=== PATIENT | female | born 1985 | race Caucasian/White ===

== ENCOUNTER → 2016-05-29 | Outpatient (REF) | payer OTHER ==
[~2016-05-29] MED LIST: ACET50TA PO; ATIV1TAB2 OR; DEPA500T2 OR; IBUP80TA PO; TRAZ50TA OR; VITAPRTA PO
== END ==
LOC: M LAB REF 16:48
PROVIDERS: ATTEND Advanced Practice Midwife
DX: Z12.4 Encounter for screening for malignant neoplasm of cervix (principal)

== ENCOUNTER → 2016-09-24 | Outpatient (CLI) | payer OTHER ==
[2016-09-24 15:41] LABS: BASO % 0.4 % (0.0-1.0); EOS % 0.8 % (0.0-3.0); LARGE UNSTAINED CELL # 0.1 K/mm3 (0.0-0.4); LYMPH # 1.9 K/mm3 (1.5-4.5); LYMPH % 27.6 % (24.0-44.0); MEAN CORPUSCULAR HEMOGLOBIN 31.4 pg (27.0-33.0); MEAN CORPUSCULAR HGB CONC 33.6 g/dl (32.0-36.5); MEAN CORPUSCULAR VOLUME 93.4 fl (80.0-96.0); MONO # 0.3 K/mm3 (0.0-0.8); MONO % 4.7 % (0.0-5.0); NEUTROPHILS # 4.1 K/mm3 (1.8-7.7); NEUTROPHILS % 64.5 % (36.0-66.0); PLATELET COUNT, AUTOMATED 328 k/mm3 (150-450); RED CELL DISTRIBUTION WIDTH 13.3 % (11.5-14.5); WHITE BLOOD COUNT 6.4 K/mm3 (4.0-10.0)
[2016-09-25 09:51] LABS: HBsAg Prenatal NEGATIVE (NEGATIVE)
== END ==
LOC: M LAB 14:53
PROVIDERS: ATTEND Advanced Practice Midwife
DX: Z34.81 Encounter for supervision of other normal pregnancy, first trimester (principal)

== ENCOUNTER → 2016-12-18 | Outpatient (CLI) | payer OTHER ==
--- NOTE | 2016-12-18 16:48 | REP ---
HISTORY: anatomy. There are no pertinent priors. Multiple ultrasonographic images of the gravid uterus show a single living intrauterine gestation in variable positions. Doppler interrogation of the heart shows a heart rate of 144 beats per minute. The placenta is anterior and not low lying. The subjective amniotic fluid volume is within normal limits. The cervix measures 3.9 cm in length and is closed. Evaluation of the maternal adnexal spaces showed no abnormalities. The anatomical structures visualized as unremarkable are as follows: Thalami, cavum septum pellucidum, cerebellum, cisterna magna, cerebral ventricles, spine, kidneys, urinary bladder, stomach, cord insertion, three vessel umbilical cord, four-chamber heart, right and left ventricular outflow tracts, facial features, and upper and lower extremities. The spine was seen suboptimally due to lie. BPD 4.4 cm = 19 weeks 3 days HC 17.1 cm = 19 weeks 5 days AC 14.5 cm = 19 weeks 6 days FL 3.2 cm = 19 weeks 6 days The estimated weight is 313 grams which is at the 40th percentile for a 20 week 0 day gestational age. IMPRESSION: Single living intrauterine gestation as described above with an estimated gestational age of 19 weeks 3 days via composite criteria and an estimated date of delivery of 05/11/2017 by today's exam. No anomalies were detected, however, I recommend a followup examination to better visualize the spine. Signed by Idris Kelley DO 12/21/2016 03:24 P
== END ==
LOC: M SMT 15:02
PROVIDERS: ATTEND Advanced Practice Midwife
DX: Z34.82 Encounter for supervision of other normal pregnancy, second trimester (principal)

== ENCOUNTER → 2017-01-08 | Outpatient (CLI) | payer OTHER ==
--- NOTE | 2017-01-08 16:47 | REP ---
Obstetric sonography: History: Supervision of for anatomy. Findings: Scanning through the gravid uterus demonstrates a viable single intrauterine gestation in a cephalic lie. motion is observed and heart rate is recorded at 150 beats per minute. A posterior grade 1 placenta is seen without evidence of previa or abruption. Amniotic fluid is subjectively normal. Closed cervical length is 5.0 cm measured transabdominally. No extrauterine abnormality is observed. There has been appropriate interval growth. No anomaly is seen. The following anatomic structures are identified and felt to be sonographically unremarkable: cranium, choroid plexus, cavum, cerebellum and posterior fossa, face and profile, lungs, four-chamber heart with left and right ventricular outflow tract views, diaphragm, left-sided stomach, abdominal wall cord insertion, three-vessel cord, kidneys and bladder, spine, upper and lower extremities. Biometry chart: BPD 5.5 cm = 22 weeks 5 days HC 21.0 cm = 23 weeks 1 day AC 18.2 cm = 23 weeks 0 days FL 4.4 cm = 24 weeks 2 days HL 3.9 cm = 23 weeks 4 days HC/AC ratio normal 1.16. Cephalic index normal 0.71. Estimated weight 601 grams, 1 pound 5 ounces, 51st percentile for 23 weeks 2 days. Impression: Viable single intrauterine gestation at 23 weeks 2 days by today's composite criteria. Expected gestational age estimate based on prior sonography is 22 weeks 3 days, JAIRO by prior sonography May 11, 2017. anatomic survey is felt to be complete. Signed by Cecil Marrufo MD 01/12/2017 08:05 A
== END ==
LOC: M RAD 09:29
PROVIDERS: ATTEND Specialist
DX: Z34.82 Encounter for supervision of other normal pregnancy, second trimester (principal)

== ENCOUNTER → 2017-02-15 | Outpatient (CLI) | payer OTHER ==
[2017-02-15 19:36] LABS: BASO % 0.2 % (0.0-1.0); EOS # 0.1 10^3/uL (0.0-0.50); EOS % 0.5 % (0.0-3.0); IMMATURE GRANULOCYTE % 0.5 % (0-0); LYMPH # 1.3 10^3/uL (1.5-4.5); LYMPH % 13.5 % (24.0-44.0); MEAN CORPUSCULAR HEMOGLOBIN 31.1 pg (27.0-33.0); MEAN CORPUSCULAR HGB CONC 33.2 g/dl (32.0-36.5); MEAN CORPUSCULAR VOLUME 93.8 fl (80.0-96.0); MONO # 0.7 10^3/uL (0.0-0.8); MONO % 7.4 % (0.0-5.0); NEUTROPHILS # 7.6 10^3/uL (1.8-7.7); NEUTROPHILS % 77.9 % (36.0-66.0); PLATELET COUNT, AUTOMATED 290 10^3/uL (150-450); RED CELL DISTRIBUTION WIDTH 13.6 % (11.5-14.5); WHITE BLOOD COUNT 9.8 10^3/uL (4.0-10.0)
== END ==
LOC: M SMT 13:54
PROVIDERS: ATTEND Advanced Practice Midwife
DX: Z34.83 Encounter for supervision of other normal pregnancy, third trimester (principal)

== ENCOUNTER → 2017-04-08 | Outpatient (REF) | payer OTHER, MEDICAID | LOC: M LAB REF 17:03 | PROVIDERS: ATTEND Advanced Practice Midwife | DX: Z34.83 Encounter for supervision of other normal pregnancy, third trimester (principal) ==

== ENCOUNTER 2017-04-22 14:05 | Inpatient (IN) | payer OTHER, MEDICAID ==
[~2017-04-22] VITALS: Ht 167.6 cm; Wt 77.7 kg
[2017-04-22] VITALS (13 sets, daily range): BP systolic 107–148; BP diastolic 58–85
[2017-04-22] MEDS ORDERED: LACTATED RINGER'S 1000 ML IV STA (14:29)
[2017-04-22] MEDS ORDERED: miSOPROStol 50 MCG 1/2 TAB (S0191) SL ONE (14:45)
[2017-04-22 15:25] LABS: MEAN CORPUSCULAR HGB CONC 34.2 g/dl (32.0-36.5); MEAN CORPUSCULAR VOLUME 90.6 fl (80.0-96.0); PLATELET COUNT, AUTOMATED 310 10^3/uL (150-450); WHITE BLOOD COUNT 10.5 10^3/uL (4.0-10.0)
--- NOTE | 2017-04-22 16:11 | HPEPDOC ---
Obstetrical History & Physical General Date of Admission Apr 22, 2017 at 14:05 History of Present Illness Chief Complaint: Induction of labor, Rupture of membranes (at 37w6d) Information Provided By: Patient, Family Age: 32 : 3 Term: 1 Pre-term: 0 Abortions: 1 Livin Care Care: Good Care Number of Visits: 13 Dating Final EDC: May 07, 2017 Final EDC by: LMP LMP: Jul 31, 2016 EGA at Admission: 37 (37 weeks 6 days) Antepartum Course Diagnos(e)s Spontaneous rupture of membranes at term Pre- weight (lbs.): 145 Change in Weight (lbs.): 28 Past Medical History Past Obstetrical History : Past Obstetrical History: Multigravida Date of Delivery: Apr 22, 2017 (November 2014) Gestation: 37 Type of Delivery: Spontaneous Vaginal Del. Sex of : Female Weight of (grams): 7 (7 lbs. 9 oz.) Complications: No MANAGER PLANNING History: Other (March 2016. She experienced an early first trimester miscarriage) Past Medical History Medical History PANKAJIK Family History Significant Family History: Cancer (breast), Other (thyroid disease) Social History Marital Status: Single Family situation: Spouse/partner home Psychosocial History: No pertinent psych hx * Smoker: non-smoker Alcohol: rarely Drugs: denies Abuse Violence Screening Have you been hit/kicked/slapp: No Have you been sexually assault: No Imunizations Tdap status: declined Influenza Status: declined Allergies Coded Allergies: Sulfa Antibiotics (Verified Allergy, Unknown, 04/22/17) Sulfa Drugs (Verified Allergy, Unknown, 08/09/12) Sulfa Drugs Cross Reactors (Verified Allergy, Unknown, 08/09/12) Medications Scheduled Multivit/Min/Pren/Fol Ac/Iron ( Rx) 1 Tab Tab, 1 TAB PO DAILY for NUTRITIONAL SUPPORT Physical Examination Physical Examination GENERAL: Alert and oriented times three. BREAST: . ABDOMEN: Gravid and non-tender to touch. FETUS: Is vertex (VTX) by sterile vaginal examination (SVE), fetus is vertex ( VTX) by Sudeep. HEART RATE: Regular rate and rhythm. LUNGS: Clear to auscultation (CTA). EXTREMITIES: No edema. No clonus. Deep tendon reflexes (DTRs) + . Other physical findings Sterile speculum exam, the office, positive pooling of clear fluid, positive nitrazine, positive fern. Sterile vaginal exam 1-2 cm, 50% effaced, -3 station Laboratory Data 24H LABS Laboratory Tests 2 04/22/17 14:38: Serology Scanned Report Hepatitis B Testing 04/22/17 15:14: Nucleated Red Blood Cells % (auto) 0.0, Urine Amphetamines Screen NEGATIVE, Urine Benzodiazepines Screen NEGATIVE, Urine Opiates Screen NEGATIVE, Urine Methadone Screen NEGATIVE, Urine Barbiturates Screen NEGATIVE, Urine Phencyclidine Screen NEGATIVE, Urine Cocaine Metabolite Screen NEGATIVE, Urine Cannabinoids Screen NEGATIVE CBC/BMP Laboratory Tests 04/22/17 15:14 Red Blood Count 4.36, Mean Corpuscular Volume 90.6, Mean Corpuscular Hemoglobin 31.0, Mean Corpuscular Hemoglobin Concent 34.2, Red Cell Distribution Width 13.0 Pertinent Laboratoy Data Blood Type: O+ RBC Antibody Screen: Negative HIV: Negative Hepatitis B: Negative Hepatitis C: Negative Rapid Plasma Reagin: Nonreactive Rubella: Immune Varicella: Unknown Chlamydia/Gonorrhea: Negative Group B Streptococcus: Negative Quad Screen Test: Declined Cystic Fibrosis: Declined Glucose Tolerance Test: 81 Anatomy Ultrasound Ultrasound Date: Dec 18, 2016 Placenta Location: Anterior Normal Anatomy: Yes Placenta Previa: No Steroid Therapy Steroid Therapy: No Vaginal Examination Dilation: other (1-2 cm) Effacement: Other (50) Station: -3 Cervical Position: Middle Presentation: Cephalic presentation Position: Vertex (occiput) Assessment Heart Rate (FHR): 145 Variability: Moderate Accelerations: Positive Decelerations: None Tocometer Contractions: Yes Frequency: irregular Duration: greater than 60 seconds Strength: palpated as moderate Assessment/Plan Assessment Pam is a 32-year-old (G) 3 para (P) 1 -0 -1-1 at 37 + 6 weeks by 8- week ultrasound. Presents to Labor and Delivery (L&D) with complaints of loss of fluid, commencing at 845 this morning. Fluid has been clear. Patient reports mild irregular cramping and good movement. Plan Admit and orient. 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 Diet: Regular. Group B Streptococcus (GBS) negative. Labs and intravenous (IV) per unit protocol. Misoprostol sublingually 1 dose Counseled on Pitocin and induction of labor (IOL). Lactated Ringers (LR): Bolus 500 mL, then saline lock. Anticipate normal spontaneous vaginal delivery. C-S as appropriate. Labor and Delivery Counseling Pam is considering an epidural for coping with her labor Evelyn Chamberlain CNM Apr 22, 2017 16:10
[2017-04-22] MEDS ORDERED: LR 1,000 ML IV SCH (19:02)
--- NOTE | 2017-04-22 19:04 | IPNPDOC ---
Obstetrical Progress Note Date of Service Apr 22, 2017 Objective Vital Signs Vital Signs Date Time Temp Pulse Resp B/P (MAP) Pulse Ox O2 Delivery O2 Flow Rate FiO2 04/22/17 17:28 97.9 75 20 138/82 (100) Assessment Heart Rate (FHR): 150 Variability: Moderate Accelerations: Positive Decelerations: None Heart Rate Tracing: Category I Tocometer Contractions: Yes Frequency: every 2-5 min. Strength: palpated as moderate Sterile Vaginal Examination Dilation: other (2-3) Effacement (%): 80+% Station: -1 Cervical Consistency: Soft Cervical Position: Middle (fluid remains clear) Postion/Presentation: Cephalic presentation Assessment and Plan Status: Reassuring Group B Streptococcus: Negative Anticipate: Vaginal Delivery Evelyn Chamberlain CNM Apr 22, 2017 19:04
[2017-04-22] MEDS ORDERED: OXYTOCIN DRIP 30 UNITS in APPROPRIATE DILUENT 1 EA IV SCH (19:15)
--- NOTE | 2017-04-22 22:06 | IPNPDOC ---
Text Note Date of Service The patient was seen on 04/22/17. NOTE Requesting IV pain management UC 2-3 minutes apart x 60 seconds, moderate FH 150, moderate variability, early decels SVE 3-4/90/-1, fluid remains clear, increased bloody show. Stadol/phenergan ordered. VS,Fishbone, I+O VS, Fishbone, I+O Laboratory Tests 04/22/17 15:14 Red Blood Count 4.36, Mean Corpuscular Volume 90.6, Mean Corpuscular Hemoglobin 31.0, Mean Corpuscular Hemoglobin Concent 34.2, Red Cell Distribution Width 13.0 Vital Signs Date Time Temp Pulse Resp B/P (MAP) Pulse Ox O2 Delivery O2 Flow Rate FiO2 04/22/17 19:56 98.8 82 20 132/81 (98) Evelyn Chamberlain CNM Apr 22, 2017 22:06
[2017-04-22] MEDS ORDERED: PROMETHAZINE INJ 25 MG/ML VIAL (J2550) IV ONE (22:15)
[2017-04-22] MEDS ORDERED: BUTORPHANOL 2 MG/ML INJ (J0595) IV ONE (22:15)
[2017-04-23] MEDS ORDERED: MEASLES,MUMPS,RUBELLA VACCINE INJ (MMR-II) (90707) SC SCH
[2017-04-23] MEDS ORDERED: DIBUCAINE 1% OINTMENT 30GM TOP PRN
[2017-04-23] MEDS ORDERED: DOCUSATE SODIUM 100 MG CAP PO PRN
[2017-04-23] MEDS ORDERED: MOM 30ML SUSPENSION UDC PO PRN
[2017-04-23] MEDS ORDERED: METHYLERGONOVINE MALEATE 0.2 MG TAB PO PRN
[2017-04-23] MEDS ORDERED: ACETAMINOPHEN 500 MG TAB PO PRN
[2017-04-23] MEDS ORDERED: ANUSOL HC CREAM 30GM TOP PRN
[2017-04-23] MEDS ORDERED: IBUPROFEN 800 MG TAB PO PRN
[2017-04-23] MEDS ORDERED: RHOGAM 300 MCG (1500 IU) INJ (J2790) IM SCH
--- NOTE | 2017-04-23 00:13 | DNPDOC ---
[facility] Delivery Note Delivery Note DATE OF DELIVERY: 04/22/2017 PREDELIVERY DIAGNOSIS: 37-6/7 weeks' gestation, PROM and labor. POST DELIVERY DIAGNOSIS: Delivered. PROCEDURE: Spontaneous vaginal delivery. CHAIR SPRING ASSEMBLER: Evelyn Chamberlain ANESTHESIA: None. ESTIMATED BLOOD LOSS: 100 mL. FINDINGS: 4 pound 15 ounce, 2250 g female infant, Score 9/9, no nuchal cord. DELIVERY SUMMARY: Patient is a 32-year-old 3 now para 2 -0 -1-2 who was admitted to labor and delivery for premature rupture of membranes at 37 weeks and 6 days. Spontaneous rupture of membranes, clear fluid at 0845 on 2016. She received misoprostol 50 g one dose sublingually followed by Pitocin augmentation of labor. She utilized Stadol and Phenergan for labor coping. Fully dilated at 2331. Viable female child was delivered in the OA position at 2334. Spontaneous respirations. Transitioned on maternal abdomen. Cord was doubly clamped and cut by the father of the baby under my direction after pulsations ceased. Apgars were 9 and 9. Placenta Alfredo intact with 3 vessel cord at 2341. Fundus firmed with massage and IV Pitocin bolus. Estimated blood loss 100 mL. Cervix, vagina and perineum inspected, noted to be intact. weight 2250 g, 4 lbs. 15 oz. Sponge, sharp and instrument count correct Evelyn Chamberlain CNM Apr 23, 2017 00:13
[2017-04-23 02:15] VITALS: BP 120/79
[2017-04-23 06:00] VITALS: BP 92/51
[2017-04-23] MEDS: PRENATAL VITAMINS CHEWABLE TABLET PO SCH (09:46)
[2017-04-23 17:51] VITALS: BP 130/83
[2017-04-24 06:18] VITALS: BP 117/78
[2017-04-24] MEDS: PRENATAL VITAMINS CHEWABLE TABLET PO SCH (08:52)
[2017-04-24] MEDS ORDERED: COLA100C5 PO (09:53)
[2017-04-24] MEDS ORDERED: IBUP-1114 PO (09:53)
[2017-04-24] MEDS ORDERED: ACET50TA PO (09:53)
== END 2017-04-24 14:40 | disposition home or self-care (01) | DRG 560 ==
LOC: M LDI 14:05 → M OBS 04-23 02:14
PROVIDERS: ADMIT Advanced Practice Midwife; ATTEND Advanced Practice Midwife
PROC: 10E0XZZ Delivery of Products of Conception, External Approach (ICD-10-PCS; principal; 2017-04-22)
DX: O42.12 Full-term premature rupture of membranes, onset of labor more than 24 hours following rupture (principal); Z37.0 Single live birth; Z3A.37 37 weeks gestation of pregnancy

== ENCOUNTER → 2017-06-01 | Outpatient (CLI) | payer OTHER, MEDICAID ==
[2017-06-01 18:14] LABS: FREE THYROXINE INDEX 2.6 % (1.3-4.8); T UPTAKE 34 % (30-39); THYROID STIMULATING HORMONE 0.793 uIU/ML (0.358-3.740); THYROXINE (T4) 7.6 UG/DL (4.5-12.0)
[2017-06-01 19:04] LABS: TOTAL 25(OH) VITAMIN D 22.3 NG/ML (30.0-100.0)
== END ==
LOC: M SMT 11:41
DX: F32.89 Other specified depressive episodes (principal)
CPT/HCPCS: 84443

== ENCOUNTER → 2018-09-29 | Outpatient (CLI) | payer OTHER ==
[~2018-09-29] MED LIST changes: -ACET50TA PO; +COLA100C5 PO; +IBUP-1114 PO; +MAPA500T2 PO
[2018-09-29 07:15] LABS: FREE T4 0.97 NG/DL (0.76-1.46); THYROID STIMULATING HORMONE 1.55 uIU/ML (0.358-3.740)
[2018-10-01 00:07] LABS: ANTI PARVO VIRUS LEVEL IgM 0.2 index (0.0-0.8)
== END ==
LOC: M LAB 06:12
PROVIDERS: ATTEND Advanced Practice Midwife
DX: Z34.82 Encounter for supervision of other normal pregnancy, second trimester (principal)

== ENCOUNTER → 2018-10-26 | Outpatient (CLI) | payer OTHER ==
--- NOTE | 2018-10-27 07:38 | REP ---
OB ULTRASOUND: Real-time sonographic evaluation of the gravid uterus performed. There is a single living intrauterine gestation with estimated gestational age 19 weeks 5 days, EDC . Today's measurements indicate appropriate growth. Biometry and Growth: BPD 43 mm = 19 weeks 0 days, 32nd percentile HC 168 mm = 19 weeks 3 days, 43rd percentile AC 155 mm = 20 weeks 4 days, 70th percentile FL 32 mm = 19 weeks 6 days, 55th percentile HC/AC ratio 1.09 within normal range. Estimated weight 335 grams, 63rd percentile. SEEN/GROSSLY UNREMARKABLE Lateral ventricles Yes Posterior fossa Yes Upper lip Yes Four-chamber heart Yes LVOT Yes RVOT Yes Stomach Yes Cord insertion Yes Three vessel cord Yes Kidneys Yes Bladder Yes Spine Yes Cervical length: Closed and measures 4.4 cm in length. heart rate: 135 beats per minute position: Breech. Placenta: Posterior and grade 0 with no previa or abruption. Amniotic fluid: Within normal limits. Electronically Signed by Segundo Shahid MD 10/27/2018 09:23 A
== END ==
LOC: M RAD 16:17
PROVIDERS: ATTEND Obstetrics & Gynecology
DX: Z34.82 Encounter for supervision of other normal pregnancy, second trimester (principal); Z3A.19 19 weeks gestation of pregnancy

== ENCOUNTER → 2018-12-13 | Outpatient (CLI) | payer OTHER ==
[2018-12-13 10:57] LABS: HEMATOCRIT 36.9 % (36.0-47.0); MEAN CORPUSCULAR HEMOGLOBIN 30.7 pg (27.0-33.0); MEAN CORPUSCULAR HGB CONC 32.5 g/dl (32.0-36.5); MEAN CORPUSCULAR VOLUME 94.4 fl (80.0-96.0); PLATELET COUNT, AUTOMATED 277 10^3/uL (150-450); RED BLOOD COUNT 3.91 10^6/uL (4.00-5.40); WHITE BLOOD COUNT 7.6 10^3/uL (4.0-10.0)
== END ==
LOC: M SMT 07:57
PROVIDERS: ATTEND Advanced Practice Midwife
DX: O99.89 Other specified diseases and conditions complicating pregnancy, childbirth and the puerperium (principal); Z3A.00 Weeks of gestation of pregnancy not specified

== ENCOUNTER → 2019-02-20 | Outpatient (REF) | payer OTHER | LOC: M LAB REF 16:50 | PROVIDERS: ATTEND Advanced Practice Midwife | DX: Z36.85 Encounter for antenatal screening for Streptococcus B (principal) ==

== ENCOUNTER 2019-03-19 10:05 | Inpatient (IN) | payer OTHER ==
[2019-03-19] VITALS (15 sets, daily range): BP systolic 94–147; BP diastolic 55–84
[~2019-03-19] VITALS: Ht 167.6 cm; Wt 82.6 kg
[2019-03-19] MEDS ORDERED: PENICILLIN G POTASSIUM IV 5 MU in D5W MINI-BAG PLUS 100 ML IV STA (11:06)
[2019-03-19] MEDS ORDERED: LACTATED RINGER'S 1000 ML IV STA (11:06)
[2019-03-19] MEDS ORDERED: miSOPROStol 50 MCG 1/2 TAB (S0191) SL SCH (11:15)
[2019-03-19 11:33] LABS: HEMATOCRIT 39.4 % (36.0-47.0); HEMOGLOBIN 12.9 g/dl (12.0-15.5); MEAN CORPUSCULAR HEMOGLOBIN 30.6 pg (27.0-33.0); MEAN CORPUSCULAR HGB CONC 32.7 g/dl (32.0-36.5); MEAN CORPUSCULAR VOLUME 93.4 fl (80.0-96.0); PLATELET COUNT, AUTOMATED 365 10^3/uL (150-450); RED BLOOD COUNT 4.22 10^6/uL (4.00-5.40); WHITE BLOOD COUNT 9.4 10^3/uL (4.0-10.0)
[2019-03-19] MEDS: LR 1,000 ML IV SCH ×2 (12:11→17:59)
[2019-03-19] MEDS ORDERED: CHOL100029 PO (12:58)
[2019-03-19] MEDS: PENICILLIN G POTASSIUM IV 2.5 MU in IV 1 EA IV SCH ×2 (15:25→19:00)
[2019-03-19] MEDS ORDERED: OXYTOCIN DRIP 30 UNITS in IV 1 EA IV SCH ×2 (16:15→22:08)
[2019-03-19] MEDS ORDERED: BUTORPHANOL 2 MG/ML INJ (J0595) As Ordered ONE (20:09)
[2019-03-19] MEDS ORDERED: PROMETHAZINE INJ 25 MG/ML VIAL (J2550) As Ordered ONE (20:09)
[2019-03-19] MEDS ORDERED: BUTORPHANOL 2 MG/ML INJ (J0595) IV ONE (20:15)
[2019-03-19] MEDS ORDERED: PROMETHAZINE INJ 25 MG/ML VIAL (J2550) IV ONE (20:15)
[2019-03-19] MEDS ORDERED: LR 1,000 ML IV SCH (22:08)
[2019-03-19] MEDS ORDERED: PROMETHAZINE 25 MG TAB PO PRN (22:15)
[2019-03-19] MEDS ORDERED: IBUPROFEN 600 MG TAB PO PRN (22:15)
[2019-03-19] MEDS ORDERED: ONDANSETRON 4MG/2ML VIAL (J2405) IV PRN (22:15)
[2019-03-19] MEDS ORDERED: DIBUCAINE 1% OINTMENT 30GM TOP PRN (22:15)
[2019-03-19] MEDS ORDERED: RHOGAM 300 MCG (1500 IU) INJ (J2790) IM SCH (22:15)
[2019-03-19] MEDS ORDERED: DOCUSATE SODIUM 100 MG CAP PO PRN (22:15)
[2019-03-19] MEDS ORDERED: MEASLES,MUMPS,RUBELLA VACCINE INJ (MMR-II) (90707) SC SCH (22:15)
[2019-03-19] MEDS ORDERED: ACETAMINOPHEN 500 MG TAB PO PRN (22:15)
[2019-03-19] MEDS: IBUPROFEN 800 MG TAB PO PRN (22:23)
[2019-03-20] MEDS: ACETAMINOPHEN TAB 650MG DOSE (2X325MG) PO PRN ×2 (02:58→15:23)
[2019-03-20 06:12] VITALS: BP 108/66
[2019-03-20] MEDS: IBUPROFEN 800 MG TAB PO PRN ×2 (08:12→19:23)
[2019-03-20] MEDS: PRENATAL VITAMINS CHEWABLE TABLET PO SCH (08:42)
[2019-03-20 18:00] VITALS: BP 133/91
[2019-03-21 05:50] VITALS: BP 106/66
[2019-03-21] MEDS ORDERED: ACET-683 PO (07:45)
[2019-03-21] MEDS ORDERED: IBUP80TA PO (07:45)
[2019-03-21] MEDS: PRENATAL VITAMINS CHEWABLE TABLET PO SCH (09:49)
== END 2019-03-21 14:10 | disposition home or self-care (01) | DRG 560 ==
LOC: M LDI 10:05 → M OBS 22:37
PROVIDERS: ADMIT Obstetrics & Gynecology; ATTEND Obstetrics & Gynecology
PROC: 10E0XZZ Delivery of Products of Conception, External Approach (ICD-10-PCS; principal; 2019-03-19)
PROC: 3E033VJ Introduction of Other Hormone into Peripheral Vein, Percutaneous Approach (ICD-10-PCS; 2019-03-19)
PROC: 3E0DXGC Introduction of Other Therapeutic Substance into Mouth and Pharynx, External Approach (ICD-10-PCS; 2019-03-19)
DX: O48.0 Post-term pregnancy (principal); O99.820 Streptococcus B carrier state complicating pregnancy; Z37.0 Single live birth; Z3A.40 40 weeks gestation of pregnancy; O09.523 Supervision of elderly multigravida, third trimester

== ENCOUNTER → 2019-07-18 | Outpatient (CLI) | payer OTHER, MEDICAID ==
[~2019-07-18] MED LIST changes: +ACET-683 PO; +CHOL100029 PO
== END ==
LOC: M PLALAB 09:52
PROVIDERS: ATTEND Obstetrics & Gynecology
DX: Z12.4 Encounter for screening for malignant neoplasm of cervix (principal); Z13.79 Encounter for other screening for genetic and chromosomal anomalies

== ENCOUNTER 2020-05-13 12:57 | Emergency (ER) | payer MEDICAID, OTHER ==
[~2020-05-13] VITALS: Ht 165.1 cm; Wt 64.9 kg
[2020-05-13 15:22] LABS: BASO % 0.6 % (0.0-1.0); EOS % 0.6 % (0.0-3.0); HEMOGLOBIN 13.3 g/dl (12.0-15.5); LYMPH # 1.5 10^3/uL (1.5-5.0); LYMPH % 24.2 % (24.0-44.0); MEAN CORPUSCULAR HEMOGLOBIN 29.2 pg (27.0-33.0); MEAN CORPUSCULAR HGB CONC 31.7 g/dl (32.0-36.5); MEAN CORPUSCULAR VOLUME 92.3 fl (80.0-96.0); MONO # 0.6 10^3/uL (0.0-0.8); MONO % 9.5 % (0.0-5.0); NEUTROPHILS % 64.8 % (36.0-66.0); PLATELET COUNT, AUTOMATED 346 10^3/uL (150-450); RED BLOOD COUNT 4.55 10^6/uL (4.00-5.40); WHITE BLOOD COUNT 6.2 10^3/uL (4.0-10.0)
[2020-05-13 15:45] LABS: ALBUMIN 4.1 GM/DL (3.2-5.2); BILIRUBIN,DIRECT 0.2 MG/DL (0.0-0.2); BILIRUBIN,TOTAL 0.5 MG/DL (0.2-1.0); TOTAL PROTEIN 7.4 GM/DL (6.4-8.2)
--- NOTE | 2020-05-13 16:43 | REP ---
INDICATION: left flank pain COMPARISON: None TECHNIQUE: Axial noncontrast images from the lung bases to the pubic symphysis with coronal and sagittal reformations. This CT examination was performed using the following dose reduction techniques: Automated exposure control, adjustment of mA and/or kv according to the patient's size, and use of iterative reconstruction technique. FINDINGS: Evaluation of the urinary tract system demonstrates normal appearance of the bilateral kidneys without hydroureteronephrosis, perinephric stranding, or nephroureterolithiasis. A 3 mm calcification in the deep left hemipelvis likely represents phlebolith and less likely distal ureteral stone. Correlation with urinalysis may be warranted. Liver, spleen, pancreas, gallbladder, and bilateral adrenal glands are normal. The enteric system is without obstruction or acute inflammatory process. Normal terminal ileum and appendix are identified in the right lower quadrant. Pelvis demonstrates collapsed bladder and age-appropriate uterus/adnexa. No ascites. No free air. No adenopathy. Abdominal aorta normal. Lung bases are clear. IMPRESSION: 1. No evidence for hydronephrosis, perinephric stranding or intrarenal calculi. 3 mm calcification in the deep left hemipelvis likely represents phlebolith and much less likely ureteral stone. 2. No further acute abdominopelvic pathology appreciated. <Electronically signed by Rohit Lorenzo > 05/13/20 [id number]
[2020-05-13] MEDS ORDERED: FLOM0.4C39 PO (16:58)
[2020-05-13] MEDS ORDERED: KETO10TAB PO (16:58)
[2020-05-13 17:20] VITALS: BP 125/84
== END 2020-05-13 17:16 | disposition home or self-care (01) ==
LOC: M ED 12:57
DX: N20.1 Calculus of ureter (principal); Z79.899 Other long term (current) drug therapy; Z88.2 Allergy status to sulfonamides

== ENCOUNTER → 2020-05-23 | Outpatient (REF) | payer OTHER ==
[~2020-05-23] MED LIST changes: +FLOM0.4C39 PO; +KETO10TAB PO
== END ==
LOC: M SFHCWAGY 09:57
PROVIDERS: ATTEND Advanced Practice Midwife
DX: R10.9 Unspecified abdominal pain (principal)

== ENCOUNTER → 2020-05-31 | Outpatient (CLI) | payer OTHER ==
--- NOTE | 2020-05-31 08:10 | REP ---
INDICATION: R10.9 FLANK PAIN COMPARISON: 05/01/2019 TECHNIQUE: Real time gee scale and color Doppler ultrasound examination using curved array transducer. FINDINGS: Bilateral kidneys are normal in contour, size, echogenicity, and reniform shape. No hydronephrosis, nephrolithiasis, cystic or renal mass lesion. Intrarenal vasculature appears normal. Bladder is unremarkable and bilateral ureteral jets are identified. Right kidney measures 11.5 x 7.0 x 4.5 cm. Left kidney measures 10.9 x 5.4 x 5.1 cm. Bladder currently measures 8.2 x 10.4 x 5.1 cm. IMPRESSION: 1. Normal renal ultrasound. <Electronically signed by Rohit Lorenzo > 05/31/20 [id number]
== END ==
LOC: M WHC 06:16
PROVIDERS: ATTEND Advanced Practice Midwife
DX: R10.9 Unspecified abdominal pain (principal)

== ENCOUNTER → 2020-06-27 | Outpatient (CLI) | payer OTHER ==
--- NOTE | 2020-06-27 08:22 | REPMRS ---
Patient History The patient states she has not had a clinical breast exam in over a year. Baseline Mammogram Family history of breast cancer under age 50 in mother. Digital Woman Screen Mammo: June 27, 2020 - Exam #: [id number] Bilateral CC and MLO view(s) were taken. Technologist: Randi Martin, Technologist No prior studies available for comparison. FINDINGS: The breast tissue is extremely dense which could obscure a lesion on mammography. The Volpara volumetric breast density category is: D. There is an extremely dense symmetrical pattern of residual fibroglandular tissue. There has been no change in the appearance of the mammogram from the previous studies. There is no interval development of dominant mass, archetectural distortion, or grouped microcalcifications suggestive of malignancy. 3-D tomosynthesis shows no additional findings. Assessment: BI-RADS/ACR category 1 mammogram. Negative Mammogram. Recommendation Breast MRI of both breasts in 6 months. Routine screening mammogram of both breasts in 1 year (for women over age 40). This patient's [facility] Lifetime Breast Cancer RIsk is estimated at 34.4 %. Annual screening Breast MRI scanniing is recommended for patient's whose lifetime risk assessment is over 20%. This mammogram was interpreted with the aid of an FDA-approved computer-aided dectection system. Electronically Signed By: Lam Marrufo MD 06/27/20 0821
== END ==
LOC: M WHC 06:52
PROVIDERS: ATTEND Obstetrics & Gynecology
DX: Z12.31 Encounter for screening mammogram for malignant neoplasm of breast (principal); Z80.3 Family history of malignant neoplasm of breast

== ENCOUNTER → 2021-02-28 | Outpatient (CLI) | payer OTHER ==
[2021-02-28 17:28] LABS: HEMATOCRIT 38.2 % (36.0-47.0); HEMOGLOBIN 12.7 g/dl (12.0-15.5); MEAN CORPUSCULAR HEMOGLOBIN 30.9 pg (27.0-33.0); MEAN CORPUSCULAR HGB CONC 33.2 g/dl (32.0-36.5); MEAN CORPUSCULAR VOLUME 92.9 fl (80.0-96.0); PLATELET COUNT, AUTOMATED 345 10^3/uL (150-450); RED BLOOD COUNT 4.11 10^6/uL (4.00-5.40)
[2021-02-28 18:39] LABS: HEPATITIS C VIRUS ABY INDEX < 0.0 INDEX (<0.8); HIV 1&2 SCREEN CENTAUR NEGATIVE (NEGATIVE)
[2021-02-28 19:15] LABS: GC DNA AMPLIFICATION NEGATIVE (NEGATIVE)
== END ==
LOC: M PLALAB 15:23
PROVIDERS: ATTEND Advanced Practice Midwife
DX: O09.529 Supervision of elderly multigravida, unspecified trimester (principal)

== ENCOUNTER → 2021-05-30 | Outpatient (CLI) | payer OTHER | LOC: M WHC 08:23 | PROVIDERS: ATTEND Obstetrics & Gynecology | DX: O09.522 Supervision of elderly multigravida, second trimester (principal); Z3A.22 22 weeks gestation of pregnancy ==

== ENCOUNTER → 2021-08-01 | Outpatient (CLI) | payer OTHER ==
[2021-08-01 15:18] LABS: MEAN CORPUSCULAR HEMOGLOBIN 31.2 pg (27.0-33.0); MEAN CORPUSCULAR HGB CONC 33.3 g/dl (32.0-36.5); MEAN CORPUSCULAR VOLUME 93.5 fl (80.0-96.0); PLATELET COUNT, AUTOMATED 248 10^3/uL (150-450); RED BLOOD COUNT 3.85 10^6/uL (4.00-5.40)
[2021-08-01 17:12] LABS: GC DNA AMPLIFICATION NEGATIVE (NEGATIVE)
== END ==
LOC: M PLALAB 11:47
PROVIDERS: ATTEND Obstetrics & Gynecology
DX: O09.522 Supervision of elderly multigravida, second trimester (principal)

== ENCOUNTER → 2021-09-04 | Outpatient (REF) | payer OTHER | LOC: M SFHCWAGY 12:59 | PROVIDERS: ATTEND Obstetrics & Gynecology | DX: Z34.83 Encounter for supervision of other normal pregnancy, third trimester (principal); Z3A.36 36 weeks gestation of pregnancy ==

== ENCOUNTER 2021-09-29 15:43 | Inpatient (IN) | payer OTHER ==
[~2021-09-29] VITALS: Ht 165.1 cm; Wt 78.8 kg
[2021-09-29] MEDS ORDERED: HOME MED LIST COMPLETE! XX SCH (16:10)
[2021-09-29 16:11] VITALS: BP 118/79
[2021-09-29] MEDS ORDERED: LACTATED RINGER'S 1000 ML IV STA (16:22)
[2021-09-29] MEDS ORDERED: LIDOCAINE 1% MDV 20ML VIAL INFIL PRN (16:25)
[2021-09-29] MEDS ORDERED: OXYTOCIN DRIP 30 UNITS in IV 1 EA IV PRN (16:25)
[2021-09-29] MEDS ORDERED: METHYLERGONOVINE MALEATE 0.2 MG/ML VIAL (J2210) IM PRN (16:25)
[2021-09-29] MEDS ORDERED: TRANEXAMIC ACID INJection 1,000 MG in NS 100 ML IV PRN (16:25)
[2021-09-29] MEDS ORDERED: CARBOPROST TROMETHAMINE 250 MCG/ML AMP IM PRN (16:25)
[2021-09-29 16:59] LABS: HEMATOCRIT 37.9 % (36.0-47.0); HEMOGLOBIN 12.9 g/dl (12.0-15.5); MEAN CORPUSCULAR HEMOGLOBIN 31.2 pg (27.0-33.0); MEAN CORPUSCULAR VOLUME 91.8 fl (80.0-96.0); PLATELET COUNT, AUTOMATED 297 10^3/uL (150-450); RED BLOOD COUNT 4.13 10^6/uL (4.00-5.40); WHITE BLOOD COUNT 9.8 10^3/uL (4.0-10.0)
[2021-09-29 18:29] VITALS: BP 126/80
[2021-09-29 20:00] VITALS: BP 137/95
[2021-09-29] MEDS ORDERED: DIBUCAINE 1% OINTMENT 30GM TOP PRN (20:05)
[2021-09-29] MEDS ORDERED: MEASLES,MUMPS,RUBELLA VACCINE INJ (MMR-II) (90707) SC SCH (20:05)
[2021-09-29] MEDS ORDERED: ACETAMINOPHEN TAB 650MG DOSE (2X325MG) PO PRN (20:05)
[2021-09-29] MEDS ORDERED: METHYLERGONOVINE MALEATE 0.2 MG TAB PO PRN (20:05)
[2021-09-29] MEDS ORDERED: ANUSOL HC CREAM 30GM TOP PRN (20:05)
[2021-09-29] MEDS ORDERED: RHOGAM 300 MCG (1500 IU) INJ (J2790) IM SCH (20:05)
[2021-09-29] MEDS ORDERED: ACETAMINOPHEN 500 MG TAB PO PRN (20:05)
[2021-09-29] MEDS ORDERED: MOM 30ML SUSPENSION UDC PO PRN (20:05)
[2021-09-29] MEDS: IBUPROFEN 800 MG TAB PO PRN (20:24)
[2021-09-29 20:41] VITALS: BP 119/80
[2021-09-29 21:50] VITALS: BP 134/78
[2021-09-30 05:49] VITALS: BP 111/65
[2021-09-30] MEDS: PRENATAL VITAMINS CHEWABLE TABLET PO SCH (08:17)
[2021-09-30] MEDS: IBUPROFEN 800 MG TAB PO PRN (08:18)
[2021-09-30] MEDS: IBUPROFEN 600MG TAB PO PRN ×2 (15:09→22:03)
[2021-09-30 18:00] VITALS: BP 123/84
[2021-09-30] MEDS: DOCUSATE SODIUM 100MG CAPSULE PO PRN (19:50)
[2021-10-01 06:00] VITALS: BP 121/79
[2021-10-01] MEDS: PRENATAL VITAMINS CHEWABLE TABLET PO SCH (08:32)
[2021-10-01] MEDS: DOCUSATE SODIUM 100MG CAPSULE PO PRN (08:32)
[2021-10-01] MEDS: IBUPROFEN 800 MG TAB PO PRN (13:00)
== END 2021-10-01 14:00 | disposition home or self-care (01) | DRG 560 ==
LOC: M LDO 15:43 → M LDI 16:41 → M OBS 21:40
PROVIDERS: ADMIT Advanced Practice Midwife; ATTEND Advanced Practice Midwife
PROC: 10E0XZZ Delivery of Products of Conception, External Approach (ICD-10-PCS; principal; 2021-09-29)
DX: O80 Encounter for full-term uncomplicated delivery (principal); Z37.0 Single live birth; Z3A.39 39 weeks gestation of pregnancy

== ENCOUNTER → 2022-07-29 | Outpatient (REF) | payer OTHER | LOC: M SFHCWAGY 13:09 | PROVIDERS: ATTEND Nurse Practitioner Family | DX: Z12.4 Encounter for screening for malignant neoplasm of cervix (principal) | CPT/HCPCS: 87624; G0123 ==

== ENCOUNTER → 2022-12-29 | Outpatient (CLI) | payer OTHER ==
[2022-12-29 14:30] LABS: ESTRADIOL 62.1 PG/ML; FOLLICLE STIMULATING HORMONE 11.8 mIU/ML; LUTEINIZING HORMONE 9.3 mIU/ML
[2022-12-29 14:31] LABS: PROGESTERONE 3.06 NG/ML
[2022-12-29 14:36] LABS: HCG, SERUM QUALITATIVE NEGATIVE (NEGATIVE)
== END ==
LOC: M PLALAB 08:39
PROVIDERS: ATTEND Nurse Practitioner Family
DX: N92.6 Irregular menstruation, unspecified (principal)

== ENCOUNTER → 2022-12-30 | Outpatient (CLI) | payer OTHER | LOC: M WHC 06:55 | PROVIDERS: ATTEND Nurse Practitioner Family | DX: R10.2 Pelvic and perineal pain (principal); N92.6 Irregular menstruation, unspecified ==

== ENCOUNTER → 2023-01-28 | Outpatient (CLI) | payer OTHER | LOC: M WHC 06:55 | PROVIDERS: ATTEND Nurse Practitioner Family | DX: Z12.31 Encounter for screening mammogram for malignant neoplasm of breast (principal); Z80.3 Family history of malignant neoplasm of breast; R92.1 Mammographic calcification found on diagnostic imaging of breast; N63.20 Unspecified lump in the left breast, unspecified quadrant ==

== ENCOUNTER → 2023-07-13 | Outpatient (CLI) | payer BC ==
[2023-07-13 16:01] LABS: HEMATOCRIT 37.3 % (36.0-47.0); HEMOGLOBIN 12.5 g/dl (12.0-15.5); MEAN CORPUSCULAR HGB CONC 33.5 g/dl (32.0-36.5); MEAN CORPUSCULAR VOLUME 92.6 fl (80.0-96.0); PLATELET COUNT, AUTOMATED 287 10^3/uL (150-450); RED BLOOD COUNT 4.03 10^6/uL (4.00-5.40); WHITE BLOOD COUNT 6.4 10^3/uL (4.0-10.0)
[2023-07-13 17:02] LABS: HIV 1&2 SCREEN NEGATIVE (NEGATIVE)
[2023-07-13 17:09] LABS: GC DNA AMPLIFICATION NEGATIVE (NEGATIVE); HEPATITIS C VIRUS ABY INDEX 0.03 INDEX (<0.8)
== END ==
LOC: M PLALAB 13:19
PROVIDERS: ATTEND Advanced Practice Midwife
DX: Z34.91 Encounter for supervision of normal pregnancy, unspecified, first trimester (principal)

== ENCOUNTER → 2023-09-10 | Outpatient (CLI) | payer BC | LOC: M WHC 08:13 | PROVIDERS: ATTEND Advanced Practice Midwife | DX: O09.522 Supervision of elderly multigravida, second trimester (principal); O32.2XX0 Maternal care for transverse and oblique lie, not applicable or unspecified; Z3A.20 20 weeks gestation of pregnancy ==

== ENCOUNTER → 2023-10-11 | Outpatient (REF) | payer BC | LOC: M PLALAB 08:31 | PROVIDERS: ATTEND Advanced Practice Midwife | DX: Z34.92 Encounter for supervision of normal pregnancy, unspecified, second trimester (principal); Z53.9 Procedure and treatment not carried out, unspecified reason ==

== ENCOUNTER → 2023-10-11 | Outpatient (CLI) | payer BC ==
[2023-10-11 13:27] LABS: MEAN CORPUSCULAR HEMOGLOBIN 31.4 pg (27.0-33.0); MEAN CORPUSCULAR HGB CONC 33.3 g/dl (32.0-36.5); MEAN CORPUSCULAR VOLUME 94.2 fl (80.0-96.0); PLATELET COUNT, AUTOMATED 294 10^3/uL (150-450); RED BLOOD COUNT 3.82 10^6/uL (4.00-5.40); WHITE BLOOD COUNT 6.9 10^3/uL (4.0-10.0)
== END ==
LOC: M PLALAB 08:43
PROVIDERS: ATTEND Advanced Practice Midwife
DX: Z34.92 Encounter for supervision of normal pregnancy, unspecified, second trimester (principal)

== ENCOUNTER → 2023-11-17 | Outpatient (CLI) | payer BC | LOC: M WHC 06:39 | PROVIDERS: ATTEND Advanced Practice Midwife | DX: Z34.92 Encounter for supervision of normal pregnancy, unspecified, second trimester (principal); Z3A.30 30 weeks gestation of pregnancy ==

== ENCOUNTER → 2023-12-24 | Outpatient (REF) | payer BC | LOC: M SFHCWAGY 13:03 | PROVIDERS: ATTEND Advanced Practice Midwife | DX: O09.523 Supervision of elderly multigravida, third trimester (principal); Z3A.00 Weeks of gestation of pregnancy not specified ==

== ENCOUNTER 2024-01-17 08:10 | Inpatient (IN) | payer BC ==
[~2024-01-17] VITALS: Ht 165.1 cm; Wt 78.8 kg
[2024-01-17] VITALS (8 sets, daily range): BP systolic 111–134; BP diastolic 67–87
[2024-01-17] MEDS ORDERED: METHYLERGONOVINE MALEATE 0.2MG/ML 1ML VIAL IM PRN (08:25)
[2024-01-17] MEDS ORDERED: CARBOPROST TROMETHAMINE 250 MCG/ML AMP IM PRN (08:25)
[2024-01-17] MEDS ORDERED: OXYTOCIN INJ 10UNITS/ML 1ML VIAL IM PRN (08:25)
[2024-01-17] MEDS ORDERED: TRANEXAMIC ACID INJection 1,000 MG in NS 100 ML IV PRN (08:25)
[2024-01-17] MEDS ORDERED: LIDOCAINE 1% MDV 20ML VIAL INFIL PRN (08:25)
[2024-01-17] MEDS ORDERED: OXYTOCIN DRIP 30 UNITS in IV 1 EA IV PRN (08:25)
[2024-01-17] MEDS ORDERED: ASPI81CH33 PO (08:28)
[2024-01-17] MEDS ORDERED: TUMS500C PO (08:28)
[2024-01-17] MEDS ORDERED: PRIL20TA2 PO (08:28)
[2024-01-17] MEDS ORDERED: HOME MED LIST COMPLETE! XX SCH (08:30)
[2024-01-17] MEDS ORDERED: miSOPROStol 50MCG 1/2 TABLET PO SCH (09:00)
[2024-01-17 09:08] LABS: MEAN CORPUSCULAR HEMOGLOBIN 31.4 pg (27.0-33.0); MEAN CORPUSCULAR HGB CONC 34.2 g/dl (32.0-36.5); MEAN CORPUSCULAR VOLUME 91.8 fl (80.0-96.0); PLATELET COUNT, AUTOMATED 299 10^3/uL (150-450); RED BLOOD COUNT 4.14 10^6/uL (4.00-5.40); WHITE BLOOD COUNT 7.9 10^3/uL (4.0-10.0)
[2024-01-17 10:29] LABS: HEPATITIS C VIRUS ABY INDEX < 0.02 INDEX (<0.8)
[2024-01-17] MEDS: miSOPROStol 50MCG 1/2 TABLET PO SCH (11:09)
[2024-01-17] MEDS: LACTATED RINGER'S 1000 ML IV STA (16:52)
[2024-01-18] VITALS (40 sets, daily range): BP systolic 88–143; BP diastolic 53–97; O2SAT 96
[2024-01-18] MEDS: LR 1,000 ML IV SCH (00:53)
[2024-01-18] MEDS: OXYTOCIN DRIP 30 UNITS in IV 1 EA IV SCH (00:54)
[2024-01-18] MEDS ORDERED: ONDANSETRON 4MG 2ML VIAL IV PRN (01:45)
[2024-01-18] MEDS ORDERED: NALOXONE INJ 0.4MG/1ML VIAL IV PRN (01:45)
[2024-01-18] MEDS ORDERED: diphenhydrAMINE 50MG/ML VIAL IV PRN (01:45)
[2024-01-18] MEDS ORDERED: EPIDURAL/PCA KEYS XX PRN (01:45)
[2024-01-18] MEDS: FENTANYL/ROPIVACAINE/NACL BAG 100 ML EPIDURAL SCH (02:16)
[2024-01-18] MEDS: ePHEDrine SULFATE 25 MG/5 ML(5MG/ML) SYRINGE IVP PRN (03:34)
[2024-01-18] MEDS: LR 500 ML IV PRN (03:36)
[2024-01-18 07:45] LABS: CORD GAS ABE V -3.8; CORD GAS HCO3 V 25.1 MMOL/L; CORD GAS O2 SAT V 24.5 %; CORD GAS PCO2 V 60.8 mmHg; CORD GAS PH V 7.233 UNITS; CORD GAS PO2 V 14.2 mmHg; CORD GAS SBC V 19.6 MMOL/L; CORD GAS TCO2 V 26.9 MMOL/L
[2024-01-18 07:47] LABS: CORD GAS HCO3 A 22.2 MMOL/L; CORD GAS O2 SAT A 24.7 %; CORD GAS PCO2 A 73.1 mmHg; CORD GAS PH A 7.1 UNITS; CORD GAS PO2 A 16.7 mmHg; CORD GAS SBC A 15.8 MMOL/L; CORD GAS TCO2 A 24.4 MMOL/L
[2024-01-18] MEDS ORDERED: MOM 30ML SUSPENSION UDC PO PRN (08:00)
[2024-01-18] MEDS ORDERED: RHO(D) IMMUNE GLOBULIN/MALTOSE 500MCG(2500IU)/2.2ML VIAL (WINRHO) IM SCH (08:00)
[2024-01-18] MEDS ORDERED: DIBUCAINE 1% OINTMENT 30GM TOP PRN (08:00)
[2024-01-18] MEDS ORDERED: ANUSOL HC CREAM 30GM TOP PRN (08:00)
[2024-01-18] MEDS: PRENATAL VITAMINS CHEWABLE TABLET PO SCH (09:49)
[2024-01-18] MEDS: ACETAMINOPHEN TAB 650MG DOSE (2X325MG) PO PRN (10:34)
[2024-01-18] MEDS: IBUPROFEN 600MG TAB PO PRN (11:48)
[2024-01-18] MEDS ORDERED: VITAMIN D 1,000 INTERNATIONAL UNITS TABLET PO SCH (15:50)
[2024-01-18] MEDS ORDERED: PILL CUTTER 1 EACH XX PRN (16:00)
[2024-01-18] MEDS: DOCUSATE SODIUM 100MG CAPSULE PO PRN (17:03)
[2024-01-18] MEDS: VITAMIN D 1,000 INTERNATIONAL UNITS TABLET PO SCH (17:13)
[2024-01-19] MEDS: IBUPROFEN 800 MG TAB PO PRN (00:13)
[2024-01-19 06:00] VITALS: BP 106/66; O2SAT 97
[2024-01-19] MEDS: ACETAMINOPHEN 500 MG TAB PO PRN (06:04)
[2024-01-19] MEDS: MEASLES,MUMPS,RUBELLA VACCINE INJ (MMR-II) SC.IMMUN ONE (09:39)
[2024-01-19 10:00] VITALS: BP 122/82; O2SAT 99
== END 2024-01-19 17:51 | disposition home or self-care (01) | DRG 560 ==
LOC: M LDI 08:10 → M OBS 01-18 09:27
PROVIDERS: ADMIT Advanced Practice Midwife; ATTEND Advanced Practice Midwife
PROC: 3E0P7GC Introduction of Other Therapeutic Substance into Female Reproductive, Via Natural or Artificial Opening (ICD-10-PCS; 2024-01-17)
PROC: 10E0XZZ Delivery of Products of Conception, External Approach (ICD-10-PCS; principal; 2024-01-18)
PROC: 10907ZC Drainage of Amniotic Fluid, Therapeutic from Products of Conception, Via Natural or Artificial Opening (ICD-10-PCS; 2024-01-18)
DX: O40.3XX0 Polyhydramnios, third trimester, not applicable or unspecified (principal); O45.93 Premature separation of placenta, unspecified, third trimester; Z37.0 Single live birth; Z3A.39 39 weeks gestation of pregnancy

== ENCOUNTER → 2024-08-24 | Outpatient (CLI) | payer BC ==
[~2024-08-24] MED LIST changes: +ASPI81CH33 PO; +PRIL20TA2 PO; +TUMS500C PO
[2024-08-24 15:07] LABS: HEMATOCRIT 42.3 % (36.0-47.0); HEMOGLOBIN 13.7 g/dl (12.0-15.5); MEAN CORPUSCULAR HEMOGLOBIN 30.3 pg (27.0-33.0); MEAN CORPUSCULAR HGB CONC 32.4 g/dl (32.0-36.5); MEAN CORPUSCULAR VOLUME 93.6 fl (80.0-96.0); PLATELET COUNT, AUTOMATED 361 10^3/uL (150-450); RED BLOOD COUNT 4.52 10^6/uL (4.00-5.40); WHITE BLOOD COUNT 5.7 10^3/uL (4.0-10.0)
[2024-08-24 15:33] LABS: THYROID STIMULATING HORMONE 1.129 uIU/ML (0.55-4.78)
[2024-08-24 15:34] LABS: FREE T4 1.53 NG/DL (0.89-1.76)
[2024-08-24 15:41] LABS: ALBUMIN 3.8 G/DL (3.2-5.2); ALKALINE PHOSPHATASE 60 U/L (35-104); ALT/SGPT 18 U/L (7.0-40); AST/SGOT 15 U/L (<34); BILIRUBIN,TOTAL 0.8 MG/DL (0.3-1.2); BLOOD UREA NITROGEN 10 MG/DL (9-23); CALCIUM LEVEL 9.1 MG/DL (8.5-10.1); CARBON DIOXIDE LEVEL 25 MMOL/L (20-31); CHLORIDE LEVEL 105 MMOL/L (98-107); CHOLESTEROL LEVEL 175 MG/DL (<200); CHOLESTEROL RISK RATIO 2.11 (<5); GLOMERULAR FILTRATION RATE > 90.0 (>58); GLUCOSE, FASTING 107 MG/DL (60-100); HDL CHOLESTEROL 82.7 MG/DL (>40); LDL CHOLESTEROL 81.3 MG/DL (<100); NON-HDL-C 92.3 MG/DL; POTASSIUM SERUM 4.1 MMOL/L (3.5-5.1); SODIUM LEVEL 138 MMOL/L (136-145); TOTAL PROTEIN 7.2 G/DL (5.7-8.2); TRIGLYCERIDES LEVEL 55 MG/DL (<150)
[2024-08-26 15:02] LABS: HPV APTIMA Not Detected (Not Detected)
== END ==
LOC: M PLALAB 09:15
PROVIDERS: ATTEND Advanced Practice Midwife
DX: Z01.419 Encounter for gynecological examination (general) (routine) without abnormal findings (principal)
CPT/HCPCS: 36415; 80053; 80061; 82652; 84439; 84443; 85027; 87624; G0123